=== PATIENT | female | born 1955 | race Caucasian/White ===

== ENCOUNTER 2017-07-09 18:48 | Emergency (ER) | payer SELFPAY ==
[~2017-07-09] VITALS: Ht 156.2 cm; Wt 87.1 kg
[~2017-07-09 18:48] MED LIST: CITA20TA4 PO; CYCL1PAK PO; FLEX10TA OR; LISI10TA PO; METHY5 OR; RANI150T PO
[2017-07-09 19:06] VITALS: BP 164/80; PULSE 79; RESP 18; TEMP 98.5; O2SAT 96
[2017-07-09] MEDS ORDERED: METHY10 PO (19:57)
[2017-07-09] MEDS ORDERED: ALPR0.5T3 PO (19:57)
[2017-07-09] MEDS ORDERED: CITA20TA4 PO (19:57)
[2017-07-09] MEDS ORDERED: TYLETAB34 PO (19:57)
[2017-07-09] MEDS ORDERED: SODIUM CHLORIDE 0.9% FLUSH 10 ML FLUSH IV FLUSH PRN (20:15)
[2017-07-09] MEDS ORDERED: MORPHINE SULFATE 4 MG/ML INJ IV PUSH ONE (20:15)
[2017-07-09] MEDS ORDERED: ONDANSETRON HCL 4 MG/2 ML VIAL IVP ONE (20:15)
--- NOTE | 2017-07-09 20:51 | RADRPT ---
EXAM DATE/TIME: 07/09/2017 20:35 [place] COMPARISON: No previous studies available for comparison. INDICATIONS : Right wrist pain. Patient fell tonight. MEDICAL HISTORY : None. SURGICAL HISTORY : None. ENCOUNTER: Initial ACUITY: 1 day PAIN SCORE: 8/10 LOCATION: Right wrist. FINDINGS: There is a transverse fracture through the distal metaphysis of the radius with mild posterior angula tion. Questionable fracture of the base of the ulnar styloid without displacement. The carpus is in normal alignment. Diffuse soft tissue swelling about the distal arm. CONCLUSION: Colles' fracture Eduardo Dubois MD on July 09, 2017 at 20:48 Board Certified Radiologist. This report was verified electronically.
[2017-07-09 21:14] VITALS: BP 136/61; PULSE 87; RESP 20; O2SAT 96
[2017-07-09 21:15] VITALS: O2SAT 96
[2017-07-09] MEDS ORDERED: TRAM50TA PO (21:16)
--- NOTE | 2017-07-09 21:22 | PD ---
HPI Chief Complaint: Injury Time Seen by Provider: 20:00 Travel History International Travel<30 days: No Contact w/Intl Traveler<30days: No Traveled to known affect area: No History of Present Illness HPI 61-year-old female presents the emergency department status post tripping over her dog with fall onto the right wrist. Patient denies any other injury. No loss of consciousness. Patient denies head pain, headache, or neck pain. Patient denies numbness or tingling in the right hand. She is noted to have mild deformity of the right wrist with swelling. Pain is currently 8 out of 10. She is allergic to coconut. PFSH Past Medical History ADD: Yes Anxiety: Yes Diminished Hearing: No Psychiatric: Yes (SEES DR CRONIN) Immunizations Current: Yes Tetanus Vaccination: Unknown Influenza Vaccination: No ?: Not Menopausal: Yes Past Surgical History Appendectomy: Yes Tonsillectomy: Yes Social History Alcohol Use: Yes (COUPLE GLASS OF WINE COUPLE TIMES WEEKLY) Tobacco Use: Yes (COUPLE CIGARRETTES DAILY) Substance Use: No Allergies-Medications (Allergen,Severity, Reaction): Coded Allergies: coconut (Unverified Allergy, Severe, Flushing, 07/09/17) Reported Meds & Prescriptions Reported Meds & Active Scripts Active Tramadol (Tramadol HCl) 50 Mg Tab 50 Mg PO Q6H PRN Reported Tylenol-Codeine #3 (Acetaminophen-Codeine) 300-30 mg Tab 1 Tab PO Q4H PRN Alprazolam 0.5 Mg Tab 0.5 Mg PO Q8H PRN Citalopram (Citalopram Hydrobromide) 20 Mg Tab 20 Mg PO DAILY Ritalin IR (Methylphenidate HCl) 10 Mg Tab 10 Mg PO TIDAC Review of Systems Except as stated in HPI: all other systems reviewed are Neg General / Constitutional: No: Fever Eyes: No: Visual changes HENT: No: Headaches Cardiovascular: No: Chest Pain or Discomfort Respiratory: No: Shortness of Breath Gastrointestinal: No: Abdominal Pain Genitourinary: No: Dysuria Musculoskeletal: Positive: Arthralgias, Limited ROM, Pain Skin: No Rash Neurologic: No: Weakness Psychiatric: No: Depression Endocrine: No: Polydipsia Hematologic/Lymphatic: No: Easy Bruising Physical Exam Narrative GENERAL: She appears in mild to moderate distress SKIN: Warm and dry. Normal color. Normal turgor. HEAD: Atraumatic. Normocephalic. EYES: Pupils equal and round. No scleral icterus. No injection or drainage. ENT: No nasal bleeding or discharge. Mucous membranes pink and moist. NECK: Trachea midline. No bony tenderness or step-off. CARDIOVASCULAR: Regular rate and rhythm. RESPIRATORY: No accessory muscle use. Clear to auscultation. Breath sounds equal bilaterally. GASTROINTESTINAL: Abdomen soft, non-tender, nondistended. Hepatic and splenic margins not palpable. MUSCULOSKELETAL: Extremities without clubbing, cyanosis, or edema. Patient has mild swelling of the right wrist with swelling over the distal radius. No ecchymosis noted. Range of motion is limited. Neurovascular exam is normal in the right hand. International Sales Representative strength is intact but limited by pain. NEUROLOGICAL: Awake and alert. No obvious cranial nerve deficits. Motor grossly within normal limits. Five out of 5 muscle strength in the arms and legs. Normal speech. PSYCHIATRIC: Appropriate mood and affect; insight and judgment normal. Data Data Last Documented VS Vital Signs Date Time Temp Pulse Resp B/P (MAP) Pulse Ox O2 Delivery O2 Flow Rate FiO2 07/09/17 21:39 07/09/17 21:15 96 Room Air 07/09/17 21:14 87 20 07/09/17 19:06 98.5 Orders Orders Iv Access Insert/Monitor (07/09/17 20:02) Ecg Monitoring (07/09/17 20:02) Oximetry (07/09/17 20:02) NPO (07/09/17 20:02) Morphine Inj (Morphine Inj) (07/09/17 20:15) Ondansetron Inj (Zofran Inj) (07/09/17 20:15) Sodium Chloride 0.9% Flush (Ns Flush) (07/09/17 20:15) Wrist, Complete ([id number]) (07/09/17 20:02) Splint Or Brace Apply/Monitor (07/09/17 21:06) Splint Or Brace Apply/Monitor (07/09/17 21:06) Mandatory Outpatient Referral (07/09/17 21:22) Ed Discharge Order (07/09/17 21:23) Fiberglass Sugartong Sp Ad Arm (07/09/17 ) Sling Cradle Arm (07/09/17 ) MDM Medical Decision Making Medical Screen Exam Complete: Yes Emergency Medical Condition: Yes Differential Diagnosis Right wrist sprain. Right wrist contusion. Right wrist fracture. Narrative Course Patient is medically stable at time of exam. Ice is placed over the right wrist. X-ray of the right wrist is obtained IV access is obtained patient is given 4 mg morphine as well as 4 mg Zofran IV. X-ray shows nondisplaced Colles' fracture of the right distal radius. Patient is placed in a sugar tong splint and sling. Is given tramadol 50 mg 4 times a day as needed for pain, #20 Patient is given a mandatory referral to Dr. King for follow-up. She can return the emergency Department with worsening symptoms as needed. Diagnosis Primary Impression: Colles' fracture of right radius, initial encounter for closed fracture Referrals: Elias King MD Patient Instructions: General Instructions Additional Instructions: X-ray of the right wrist is obtained IV access is obtained patient is given 4 mg morphine as well as 4 mg Zofran IV. X-ray shows nondisplaced Colles' fracture of the right distal radius. Patient is placed in a sugar tong splint and sling. Is given tramadol 50 mg 4 times a day as needed for pain, #20 Patient is given a mandatory referral to Dr. King for follow-up. She can return the emergency Department with worsening symptoms as needed. Med/Other Pt SpecificInfo: Prescription(s) given Scripts Tramadol (Tramadol) 50 Mg Tab 50 MG PO Q6H Y for PAIN, #20 TAB 0 Refills Prov: Susana Marlow MD 07/09/17 Disposition: 01 DISCHARGE HOME Condition: Stable Mani Morejon Jul 09, 2017 21:22
== END 2017-07-09 21:41 | disposition home or self-care (01) ==
LOC: PHED 18:48 → PHEFT 21:41
DX: S52.531A Colles' fracture of right radius, initial encounter for closed fracture (principal); W01.0XXA Fall on same level from slipping, tripping and stumbling without subsequent striking against object, initial encounter; Y93.K1 Activity, walking an animal; Z72.0 Tobacco use; Z72.89 Other problems related to lifestyle
CPT/HCPCS: 29125; 73110; 96374; 96375; 99284; J2270; J2405

== ENCOUNTER 2017-07-11 20:32 | Emergency (ER) | payer SELFPAY ==
[~2017-07-11 20:32] MED LIST changes: +ALPR0.5T3 PO; -CYCL1PAK PO; -FLEX10TA OR; -LISI10TA PO; +METHY10 PO; -METHY5 OR; -RANI150T PO; +TRAM50TA PO; +TYLETAB34 PO
[2017-07-11 20:44] VITALS: BP 166/77; PULSE 83; RESP 20; TEMP 97.9; O2SAT 96
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
[2017-07-11] MEDS ORDERED: ACETAMINOPHEN/HYDROcodone 325 MG/5 MG TAB PO ONE (21:15)
[2017-07-11] MEDS ORDERED: PERC5TAB12 PO (22:07)
[2017-07-11 22:11] VITALS: BP 160/74; TEMP 97.9
== END 2017-07-11 22:18 | disposition home or self-care (01) ==
LOC: PHED 20:32
DX: R60.0 Localized edema (principal)
CPT/HCPCS: 99281

== ENCOUNTER → 2017-08-15 | Outpatient (CLI) | payer SELFPAY ==
[~2017-08-15] MED LIST changes: +PERC5TAB12 PO
== END ==
LOC: HORT 12:55
PROVIDERS: ATTEND Orthopaedic Surgery
DX: S52.531A Colles' fracture of right radius, initial encounter for closed fracture (principal)
CPT/HCPCS: L3908

== ENCOUNTER 2018-02-21 15:41 | Observation (INO) ==
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
[2018-02-21 21:03] VITALS: RESP 16
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
[2018-02-21] MEDS ORDERED: Bisacodyl 10 MG Supp RECTAL PRN (23:57)
[2018-02-21] MEDS ORDERED: Temazepam 15 MG Capsule PO PRN (23:57)
[2018-02-22] MEDS: Sod Chloride 0.9% Inj 1,000 ML IV.CONT SCH ×2 (01:00→12:19)
[2018-02-22 01:10] LABS: Baso % (Auto) 0.4 % (0.0-2.0); Eos # (Auto) 0.2 th/mm3 (0.0-0.4); Eos % (Auto) 1.8 % (0.0-4.0); Hematocrit 44.3 % (35.0-46.0); Hemoglobin 14.7 gm/dL (11.6-15.3); Lymph # (Auto) 2.9 th/mm3 (1.0-4.8); Lymph % (Auto) 33.2 % (9.0-44.0); Mean Corpuscular HGB Conc 33.1 % (32.0-36.0); Mean Corpuscular Hemoglobin 30.3 pg (27.0-34.0); Mean Corpuscular Volume 91.5 fL (80.0-100.0); Mean Platelet Volume 9.4 fL (7.0-11.0); Mono # (Auto) 0.5 th/mm3 (0.0-0.9); Mono % (Auto) 5.3 % (0.0-8.0); Neut # (Auto) 5.2 th/mm3 (1.8-7.7); Neut % (Auto) 59.3 % (16.0-70.0); Platelet Count 275 th/mm3 (150-450); Red Blood Count 4.84 mil/mm3 (4.00-5.30); Red Cell Distribution Width 14.6 % (11.6-17.2); White Blood Count 8.8 th/mm3 (4.0-11.0)
[2018-02-22 01:24] LABS: Alkaline Phosphatase 74 U/L (45-117); Total Protein 7.3 g/dL (6.4-8.2)
[2018-02-22 01:35] LABS: Alanine Aminotransferase 23 U/L (10-53); Albumin 3.8 g/dL (3.4-5.0); Anion Gap 6 meq/L (5-15); Aspartate Aminotransferase 15 U/L (15-37); Blood Urea Nitrogen 11 mg/dL (7-18); Calcium 8.7 mg/dL (8.5-10.1); Carbon Dioxide 27.3 meq/L (21.0-32.0); Chloride 109 meq/L (98-107); Glomerular Filtration Rate 82 mL/min (>89); Glucose,Random 75 mg/dL (74-106); Potassium 4.4 meq/L (3.5-5.1); Sodium 142 meq/L (136-145)
[2018-02-22 06:20] LABS: Bilirubin,Urine Negative (Negative); Clarity,Urine Clear (Clear); Color,Urine Straw (Yellw/Straw); Glucose,Urine (UA) Negative (Negative); Leukocyte Esterase,Urine Trace (Negative); Nitrite,Urine Negative (Negative); Specific Gravity,Urine 1.003 (1.002-1.035)
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
[2018-02-22] MEDS ORDERED: Senna/Docusate Sodium 8.6/50 MG Tablet PO SCH (09:00)
--- NOTE | 2018-02-22 12:18 | P.PNIM ---
Subjective Interval history: Here for follow-up for new left breast mass. Family at bedside with patient's permission. Patient has no acute concerns today. Discussed results of breast ultrasound. Physical Exam Vital signs: Vital Signs 02/21/18 15:55 02/21/18 16:02 02/21/18 23:57 Temperature 98.7 F 98.1 F Pulse Rate 82 77 78 Respiratory Rate 16 16 16 Blood Pressure 153/97 H 154/74 H 139/84 Pulse Oximetry 97 99 97 02/22/18 00:00 02/22/18 04:00 02/22/18 08:00 Temperature 97.9 F 98.2 F 97.5 F L Pulse Rate 74 72 64 Respiratory Rate 16 16 16 Blood Pressure 139/81 130/69 139/77 Pulse Oximetry 98 97 97 02/22/18 11:44 Temperature 98.4 F Pulse Rate 71 Respiratory Rate 16 Blood Pressure 143/82 H Pulse Oximetry 97 Intake & Output 02/21/18 02/22/18 02/22/18 18:59 06:59 18:59 Weight 175 lb Narrative: GENERAL: Well-developed well-nourished. In no acute distress. SKIN: Warm and dry. No lesions noted. HEENT: Normocephalic. Pupils equal and round. Mucous membranes pink and moist. CARDIOVASCULAR: Regular rate and rhythm. No murmur appreciated. RESPIRATORY: No accessory muscle use. Clear to auscultation. Breath sounds equal bilaterally. GASTROINTESTINAL: Abdomen soft, non-tender, nondistended. Bowel sounds x4. MUSCULOSKELETAL: No obvious deformities. No clubbing or cyanosis. No edema. NEUROLOGICAL: Awake and alert. No focal neurological deficits. Moves upper and lower extremities spontaneously. Normal speech. PSYCHIATRIC: Appropriate mood and affect; insight and judgment normal. Results - Labs CBC & Chem 7: 02/22/18 01:00 02/22/18 01:00 Laboratory Results - last 24 hr 02/22/18 02/22/18 02/22/18 01:00 01:00 02:15 WBC 8.8 RBC 4.84 Hgb 14.7 Hct 44.3 MCV 91.5 MCH 30.3 MCHC 33.1 RDW 14.6 Plt Count 275 MPV 9.4 Neut % (Auto) 59.3 Lymph % (Auto) 33.2 [place] % (Auto) 5.3 Eos % (Auto) 1.8 Baso % (Auto) 0.4 Neut # (Auto) 5.2 Lymph # (Auto) 2.9 [place] # (Auto) 0.5 Eos # (Auto) 0.2 Baso # (Auto) 0.0 WBC Differential . Differential Comment Auto diff final Sodium 142 Potassium 4.4 Chloride 109 H Carbon Dioxide 27.3 Anion Gap 6 BUN 11 Creatinine 0.72 Estimated GFR 82 L Random Glucose 75 Calcium 8.7 Total Bilirubin 0.4 AST 15 ALT 23 Alkaline Phosphatase 74 Total Protein 7.3 Albumin 3.8 Urine Color Straw Urine Clarity Clear Urine pH 6.0 Ur Specific [place] 1.003 Urine Protein Negative Urine Glucose (UA) Negative Urine Ketones Negative Urine Occult Blood Moderate H Urine Nitrate Negative Urine Bilirubin Negative Urine Urobilinogen Less than 2 Ur Leukocyte Esterase Trace H Urine RBC 1 Urine WBC 3 Micro UA Comment Culture not ind Urine Culture Comments Culture not ind - Imaging Impressions Pelvis Ultrasound 02/21/18 19:42 CONCLUSION: 1. Thickened endometrium to greater than 2 cm with increased vascularity. Multiple uterine fibroids as above. 2. Cystic lesion right ovary measuring up to 5.4 cm. Left ovary removed. Breast Ultrasound 02/22/18 00:00 CONCLUSION: 1. Findings highly concerning for malignancy and concerning lymph nodes. Recommend correlation with bilateral diagnostic mammogram to evaluate for additional areas of disease and biopsy is recommended. Assessment and Plan - Plan 62-year-old female with no significant PMH who presented with complaints of new left breast mass. Left breast mass: Ultrasound findings highly concerning for malignancy with concerning lymph nodes as well. Consult oncology. Likely needs biopsy during this admission prior to outpatient follow-up with oncology. Vaginal bleeding: Chronic issue. Hemoglobin 14.7. Pelvis ultrasound with thickened endometrium, multiple uterine fibroids, cystic lesion right ovary. Patient needs outpatient MECHANICAL MANUFACTURING ENGINEER follow-up. DVT prophylaxis: SCD Discharge Planning: Follow-up oncology recommendations. May need biopsy during admission.
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
[2018-02-25 18:18] VITALS: BP 142/86; PULSE 71; TEMP 98; O2SAT 95
== END 2018-02-22 21:52 | disposition home or self-care (01) ==
LOC: NEPE 15:41 → NEDA 15:41 → NEPGCP 15:41
PROVIDERS: ADMIT Hospitalist; ATTEND Hospitalist

== ENCOUNTER 2018-04-03 06:26 | Observation (INO) ==
[2018-04-03] MEDS ORDERED: Metoprolol Tartrate 25 MG Tablet PO ONE (06:54)
[2018-04-03] MEDS ORDERED: Chlorhexidine Gluconate 2% 1 Pack (2 Cloths) TOPICAL ONE (06:54)
[2018-04-03] MEDS ORDERED: ceFAZolin 2 GM IV; once IV.SIG ONE (07:00)
[2018-04-03] MEDS ORDERED: Sodium Chlor 0.9% Inj 500 ML IV.SIG SCH (07:00)
[2018-04-03] MEDS ORDERED: Heparin - SQ 10,000 UNITS/ML Vial SQ ONE (07:00)
[2018-04-03] MEDS ORDERED: Sugammadex Inj 200 MG/2 ML Vial IV.PUSH ONE (07:31)
[2018-04-03] MEDS ORDERED: Famotidine PF Inj 20 MG/2 ML Vial ONE ×2 (07:43→13:44)
[2018-04-03] MEDS ORDERED: Lidocaine 1%/Epinephrine 1:100,000 Inj 20 ML Vial ONE (09:01)
[2018-04-03] MEDS ORDERED: Ketorolac Inj 30 MG/ML (IVP) Vial IV.PUSH ONE (12:30)
[2018-04-03] MEDS ORDERED: LORazepam 0.5 MG Tablet PO PRN (13:36)
[2018-04-03] MEDS ORDERED: fentaNYL Citrate Inj 100 MCG/2 ML Ampul ONE (13:43)
[2018-04-03] MEDS ORDERED: *morphine SULFATE 10 MG/ML PERIprocedure ONLY ONE ×2 (13:52→14:27)
[2018-04-03] MEDS ORDERED: DEXTROSE ONE (13:55)
[2018-04-03] MEDS ORDERED: POTASSIUM CHLORIDE ONE (13:55)
[2018-04-03] MEDS ORDERED: SODIUM CHLORIDE ONE (13:55)
[2018-04-03] MEDS: KCL 20 mEq/D5W/NaCl 0.45% Inj 1,000 ML IV.CONT SCH (14:00)
[2018-04-03] MEDS ORDERED: KCL 20 mEq/D5W/NaCl 0.45% Inj 1,000 ML ONE (14:03)
[2018-04-03] MEDS ORDERED: *morphine SULFATE 4 MG/ML PERIprocedure ONLY ONE (15:37)
[2018-04-03] MEDS: Ketorolac Inj 30 MG/ML (IVP) Vial IV.PUSH SCH (17:46)
[2018-04-04] MEDS: KCL 20 mEq/D5W/NaCl 0.45% Inj 1,000 ML IV.CONT SCH ×2 (00:08→14:31)
[2018-04-04] MEDS: Ketorolac Inj 30 MG/ML (IVP) Vial IV.PUSH SCH ×3 (00:08→11:30)
[2018-04-04 08:28] LABS: Baso % (Auto) 0.1 % (0.0-2.0); Eos % (Auto) 0.4 % (0.0-4.0); Hematocrit 37.6 % (35.0-46.0); Hemoglobin 12.3 gm/dL (11.6-15.3); Lymph # (Auto) 1.8 th/mm3 (1.0-4.8); Lymph % (Auto) 15.5 % (9.0-44.0); Mean Corpuscular HGB Conc 32.6 % (32.0-36.0); Mean Corpuscular Hemoglobin 30.1 pg (27.0-34.0); Mean Corpuscular Volume 92.2 fL (80.0-100.0); Mean Platelet Volume 9.3 fL (7.0-11.0); Mono # (Auto) 0.5 th/mm3 (0.0-0.9); Mono % (Auto) 4.1 % (0.0-8.0); Neut # (Auto) 9.1 th/mm3 (1.8-7.7); Neut % (Auto) 79.9 % (16.0-70.0); Platelet Count 245 th/mm3 (150-450); Red Blood Count 4.08 mil/mm3 (4.00-5.30); White Blood Count 11.4 th/mm3 (4.0-11.0)
[2018-04-04 08:50] LABS: Anion Gap 6 meq/L (5-15); Blood Urea Nitrogen 6 mg/dL (7-18); Calcium 8.1 mg/dL (8.5-10.1); Carbon Dioxide 28.8 meq/L (21.0-32.0); Chloride 107 meq/L (98-107); Glomerular Filtration Rate Greater Than 89 mL/min (>89); Glucose,Random 90 mg/dL (74-106); Sodium 142 meq/L (136-145)
[2018-04-04 10:05] VITALS: RESP 20; O2SAT 96
--- NOTE | 2018-04-04 10:50 | MP ---
cc: Jessica Lan MD, Abdul J MD DATE OF OPERATION: 04/04/2018 DATE OF PROCEDURE: 04/03/2018. PREOPERATIVE DIAGNOSES: 1. Postmenopausal bleeding. 2. Uterine papillary serous carcinoma. 3. Enlarged uterus. 4. Recent diagnosis of breast cancer. POSTOPERATIVE DIAGNOSES: 1. Postmenopausal bleeding. 2. Uterine papillary serous carcinoma. 3. Enlarged uterus. 4. Recent diagnosis of breast cancer. PROCEDURE: Robotic-assisted laparoscopic hysterectomy, bilateral salpingo-oophorectomy, bilateral pelvic excisional lymph node biopsies, intraperitoneal biopsies, peritoneal washings. SURGEON: Jessica Lan MD SIFTER [employer] MILLER: [place] assistant surveyor. ANESTHESIA: General endotracheal anesthesia. ESTIMATED BLOOD LOSS: 200 mL. IV FLUIDS: 1600 mL. URINE OUTPUT: 320 mL. INDICATIONS: A 62-year-old female who has been having postmenopausal bleeding for many months, recently sought evaluation. Found on ultrasound to have markedly enlarged uterus with a thickened endometrial stripe with a mass-like effect in the endometrium as well as a mass-like effect at the fundus with the fundal mass thought to be probable leiomyoma with the endometrial mass suspicious for tumor. Biopsy was performed, which showed a high-grade endometrial cancer favoring papillary serous adenocarcinoma. She had also been recently diagnosed with breast cancer and is in the process of evaluation and management of recommendations under the direction of Dr. Beka Comer. She has been counseled regarding endometrial cancer and the recommendations of surgical intervention. She is seen again in the preoperative holding area where the findings and plan of care are again discussed. She expresses good understanding after questions were asked and answered and would like to move forward with surgery. FINDINGS: The uterine cavity only sounded to approximately 8 cm, but palpably, it was approximately 16 cm in height. Upon dilation of the cervix, there was some tumor visible apparently coming down from the endometrium within the peritoneal cavity. Indeed, the body of the uterus was only about 8 cm, but there was another approximately 7-8 cm mass at the left fundus and posterior and lower portion of the uterus were all occupied by this mass. The tubes and ovaries grossly appeared normal. In the retroperitoneum there were no overtly enlarged paraortic or caval lymph nodes. In the right pelvis there were a couple of prominent enlarged lymph nodes along the external iliac vessels. In the left pelvis there was a prominent lymph node in the distal external iliac vessels as well as in the obturator space right at the bifurcation of the internal and external iliac veins. There were no overt peritoneal nodularities or masses. The omentum grossly appeared normal. The large and small bowel and adjacent mesentery appeared normal. Liver diaphragm edges were smooth. The uterine specimen, once removed, showed a very sizable tumor, at least 6 cm, with invasion at least 50% of the depth of the myometrium. The tumor extended into the lower uterine segment, but did not appear to directly involve the cervix. STATEMENT OF COMPLEXITY/MODIFIER: Complexity of this case was increased significantly due to the large size of the uterus, which certainly seems to weigh more than 250 grams and modifier should be applied accordingly. DESCRIPTION OF PROCEDURE: She was taken to the operating room and placed in dorsal lithotomy position after general endotracheal anesthesia was administered. A timeout was undertaken. She was identified by site recognition and hospital ID bracelet and the proposed procedure was reviewed and confirmed. She was carefully positioned in padded Zev stirrups. Her arms were padded and secured to the sides. She was further secured to the operating table with egg crate padding and tape in a cross yes over the shoulder fashion. All sites noted to be properly aligned with no malalignment or pressure points. She was prepped and draped in sterile fashion and draped below the waist, placed in high lithotomy position. The cervix was grasped. Uterine cavity was sounded and a standard VCare manipulator was inserted and secured in usual fashion. Ho catheter placed in the bladder. She was returned to low lithotomy position. Change of sterile gloves was undertaken. We completed draping in anticipation of laparoscopy, confirmed that an orogastric tube was in the stomach on suction. With manual elevation of the abdominal wall and direct laparoscopic visualization, 5 mm cannula placed in the left upper quadrant. An atraumatic entry was confirmed. Carbon dioxide gas was insufflated and under visualization, an 8 mm cannula was placed in the right upper quadrant and left lateral quadrant and a 12 needle 12 mm cannula was placed in midline above the umbilicus. She was placed in Trendelenburg position. Peritoneal washings were obtained for cytology. The anatomy was surveyed with findings as described above. The small bowel was folded back on its mesenteric root and 3 Ray-Jean Claude sponges were placed around the root of the small bowel mesentery. The robotic system was brought into the operative field and attached in the usual fashion. Monopolar scissors, fenestrated bipolar forceps, and ProGrasp manipulators were placed in arms #1, 2, and 3 respectively and I took my place at the surgeon's console. The right round ligament was isolated, cauterized, transected. The anterior and posterior leaves of the broad ligament were opened. The right ureter was identified. The right infundibulopelvic ligament was isolated. The infundibulopelvic ligament was dissected to the level of the pelvic brim, it was cauterized and transected. The posterior peritoneum was opened along the right side of the uterus and cervix and the right vesicouterine peritoneum was dissected off the lower uterine segment and cervix. The right uterine vessels were skeletonized. The vascularity was quite prominent and so attempts to secure the blood flow were not made yet until the contralateral vessels were exposed. Attention was directed to the left side where the left round ligament was cauterized and transected. The anterior and posterior leaves of the broad ligament were opened. Filmy adhesions were taken down to mobilize the colon from attachments to the left pelvic sidewall. The left ureter was identified and the left infundibulopelvic ligament was isolated. The intervening peritoneum was opened and the infundibulopelvic ligament was isolated to the level of the pelvic brim where it was cauterized and transected. Posterior peritoneum opened along the left side of the uterus and cervix and the left vesicouterine peritoneum dissected off the lower uterine segment and cervix. The left uterine vessels were skeletonized and now that the vessels were accessible bilaterally, the vessels first were cauterized on the left side and then the vessels on the right side were cauterized. Blanching was noted throughout the uterus now that the majority of the blood supply had been secured. The left uterine vessels were now transected and the cardinal, paracervical, and uterosacral ligaments were isolated, cauterized, and transected in a stepwise fashion, freeing the attachments along the left side of the uterus and cervix. Attention was then directed toward the right side where similarly, the right uterine vessels were transected and the cardinal, paracervical and uterosacral ligaments were isolated, cauterized, and transected in a stepwise fashion. Colpotomy was performed the cervix from the upper vagina and due to the difficulty of the large pelvic mass relative to the pelvic outlet, I left the surgeon's console to help deliver the specimen transvaginally. With multiple tenaculums placed, repositioning, countertraction, and varus maneuvers the specimen was able to be delivered transvaginally which included uterus, cervix, tubes and ovaries and a pneumo occluder balloon was placed in the vagina to maintain pneumoperitoneum. I returned to the surgeon's console. It should be noted that there was a cystic enlargement to the right ovary such that, prior to delivery of the specimen. To clarify, the transvaginal delivery included uterus and cervix only. I should clarify the specimen included uterus and cervix only. It should be noted and clarified that the left tube and ovary were surgically absent and the right ovary had a cystic enlargement. The right utero-ovarian ligament was cauterized and transected, this ovarian mass which was now captured in an EndoCatch bag and separately delivered transvaginally. The vaginal cuff was closed as 0 Vicryl suture was introduced. Instruments 1 and 3 exchanged for needle drivers and closure was started at the left corner. Full-thickness closure incorporating posterior peritoneum and the edge of the uterosacral ligament tied via instrument tie. Counter traction was held on the suture as a full-thickness running continuous closure was carried across the vaginal apex to the contralateral corner where it was similarly fixed, secured, and tied. The needle was cut and removed. Attention was directed to the periaortic and pericaval space where visual and palpable inspection did not reveal any overtly enlarged lymph nodes. Attention was directed to the right pelvis where the paravesical obturator and perirectal spaces were opened. Two enlarged lymph nodes along the external iliac vessels were noted, isolated, and removed with bipolar cautery and sharp dissection. They were placed on a Ray-Jean Claude sponge in the right pericolic gutter for later retrieval. There were no overtly enlarged lymph nodes elsewhere in the lymph node basin. Attention was directed toward the left side where the spaces were similarly opened. Perivesical, perirectal, and obturator spaces were opened and an enlarged lymph node along the distal iliac, external vessels was noted. This was removed with bipolar cautery and sharp dissection, placed for later retrieval. In the obturator space right at the bifurcation of the internal and external iliac veins, there was a fixed lymph node fairly fixed to these vessels. Initiation of dissection encountered some bleeding and the note seemed quite fixed to these vessels and so a portion of the lymph node was removed with the base of the lymph nodes still left intact in its fixed position with the understanding that, given the diagnosis of papillary serous carcinoma, we had already considered and recommended postoperative chemotherapy in an effort to avoid excess morbidity. Full lymphadenectomy was not performed as it may not affect overall management or prognosis. This area was rendered hemostatic with bipolar cautery and a Ray-Jean Claude was placed there for pressure to assist in hemostasis. Random peritoneal biopsies were taken from the abdomen and pelvis and also focused biopsies where there were areas of adhesions. There were no overt peritoneal implants and these were collected and removed laparoscopically, labeled as peritoneal biopsies. Small epiploic appendix was noted in the cul-de-sac and was also removed. It had been detached from the pericolonic fat. The pelvis and abdomen were thoroughly irrigated. All sites were noted to be hemostatic. It was felt that all reasonable surgical objectives had been completed and so the robotic instruments were removed. The robotic system was disengaged from the operative field and I reentered the bedside under sterile condition. Under laparoscopic visualization, a 12 mm EndoCatch bag was used to capture the lymph nodes which were brought out through the 12 mm cannula and labeled bilateral pelvic lymph nodes. Each of the 3 Ray-Jean Claude sponges that were placed in the peritoneal cavity were removed. They were removed individually and inspected and noted to be removed in their entirety. Visual inspection of the peritoneal cavity revealed no remaining foreign objects in the peritoneal cavity other than the intentionally placed Surgicel, which had been placed in the pelvic lymph node dissection bed and across the vaginal cuff. The 12 mm fascial defect was closed with 0 Vicryl sutures using a needle fascial closure apparatus. They were tied securely which rendered the fascia completely airtight and hemostatic. The remaining cannulas were withdrawn. Carbon dioxide gas was removed, 3-0 Vicryl subcutaneous, 3-0 Vicryl subcuticular, and Steri-Strips were used to close these incisions. She was returned to dorsal lithotomy position. An exam confirmed that the vaginal cuff was well supported and hemostatic. However, due to the delivery of the large specimen transvaginally there were periurethral laceration on the right side and there was a perineal laceration midline. These were reapproximated and rendered hemostatic with [id number] 3-0 Vicryl sutures. Again inspected. The vagina was irrigated. All sites were hemostatic and the remaining hemostatic Ana Maria agent was placed in the vagina, and at the introitus. There were no remaining foreign objects in the vagina and the final counts were correct. She was returned to dorsal supine position and was pending reversal of anesthesia when I left the operating room to precede her to the postanesthesia care unit and to speak to family member who was waiting in the surgical waiting area. MD JEREMIE Winkler/rosalba , 08:21 AM , 08:45 AM
[2018-04-04 12:17] VITALS: BP 151/93; PULSE 72; TEMP 98
--- NOTE | 2018-04-05 23:29 | MD ---
cc: Jessica Lan MD DATE OF DISCHARGE: 04/04/2018 PROCEDURE: Robotic-assisted laparoscopic hysterectomy, bilateral salpingo-oophorectomy, bilateral pelvic excisional lymph node biopsies, intraperitoneal biopsies. 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 HOSPITAL COURSE: She did well in the early postoperative period, hemodynamically stable, tolerating oral intake, Ho catheter removed pending voiding. In's and out's are 3520/2770. Labs are pending. PHYSICAL EXAMINATION: VITAL SIGNS: She is afebrile, pulse 67-78, respirations 16-18, blood pressure 121-137/65-76, O2 saturations greater than or equal to 95%. GENERAL: Alert and oriented x3. LUNGS: Clear. Mild rales at the bases. CARDIOVASCULAR: Regular rate and rhythm. ABDOMEN: Soft. Incision is clean and dry. GYNECOLOGIC: No bleeding. ASSESSMENT: Postoperative day one. Findings at the time of surgery and preliminary pathology reviewed, activities and restrictions again discussed. Questions were asked and answered. She expressed good understanding. PLAN: I anticipate she will meet criteria for discharge to home today. She is to resume prior medication. She will have a prescription for Percocet. Our office number is made available. She is to contact our office to schedule a followup in 2 weeks or to call our office should she have any questions or problems between now and the time of scheduled followup. MD JEREMIE Winkler/mani , 07:47 AM , 07:54 AM
== END 2018-04-04 17:02 | disposition home or self-care (01) ==
LOC: HSDI 06:26 → HSDC 06:26 → H1EA 16:58
PROVIDERS: ADMIT Obstetrics & Gynecology Gynecologic Oncology; ATTEND Obstetrics & Gynecology Gynecologic Oncology